=== PATIENT | male | born 1950 | race Caucasian/White ===

== ENCOUNTER 2020-01-04 07:08 | Day surgery (SDC) | payer OTHER ==
[2020-01-01 15:24] VITALS: BP 160/80
[2020-01-01 15:27] LABS: BASOPHILS % (AUTO) 0.1 % (0.0-5.0); HEMATOCRIT 35.3 % (42-54); LYMPHOCYTES % (AUTO) 15.9 % (21.0-51.0); MEAN CORPUSCULAR HEMOGLOBIN 36.6 pg (27.0-33.0); MEAN CORPUSCULAR HGB CONC 36.5 g/dL (32.0-36.0); MEAN CORPUSCULAR VOLUME 100.3 fL (79-99); MONOCYTES % (AUTO) 9.6 % (3.0-13.0); PLATELET COUNT (AUTO) 166 K/uL (130-400); RED BLOOD CELL COUNT(AUTO) 3.52 MIL/uL (4.50-6.20); WHITE BLOOD COUNT (AUTO) 7.6 K/uL (4.8-10.8)
[2020-01-01 15:28] LABS: APPEARANCE,URINE Clear (CLEAR); BILIRUBIN,URINE Negative (NEGATIVE); COLOR,URINE Dark Yellow (YELLOW); GLUCOSE, URINE (UA) TRACE mg/dL (NEGATIVE); KETONES,URINE Negative (NEGATIVE); LEUKOCYTE ESTERASE ,URINE Small (NEGATIVE); NITRATE,URINE Negative (NEGATIVE); OCCULT BLOOD,URINE Large (NEGATIVE); PROTEIN,URINE POS 1+ mg/dL (NEGATIVE)
[2020-01-01 15:48] LABS: BACTERIA,URINE Moderate /HPF (None Seen); MUCUS,URINE Moderate LPF (None Seen)
[2020-01-01 15:50] LABS: INR 1.03 (0.85-1.15); PROTHROMBIN TIME 10.8 SEC (9.6-11.6)
[2020-01-01 16:02] LABS: CREATININE 0.9 mg/dL (0.5-1.5); POTASSIUM 3.2 mmol/L (3.5-5.1)
--- NOTE | 2020-01-03 13:24 | NUR ---
LABS INFORMED DR. CALZADA OF POTASSIUM. NO ORDERS RECEIVED. PROCEED WITH PLANNED PROCEDURE.
[~2020-01-04] VITALS: Ht 168.9 cm; Wt 104.8 kg
[2020-01-04] VITALS (19 sets, daily range): BP systolic 132–165; BP diastolic 69–84
[~2020-01-04 07:08] MED LIST: ASPI-556 PO; FISH400C2 PO; METO-391 PO; ONDANSETRON HCL 4 MG/2 ML VIAL ONE; SIMV-43 PO; TRIA1CAP6 PO
[2020-01-04] MEDS ORDERED: FENTANYL CITRATE PF 50 MCG/1 ML 2ML VIAL ONE ×2 (07:57→09:35)
[2020-01-04] MEDS ORDERED: LIDOCAINE PF 2% 5ML ABBOJECT ONE (07:57)
[2020-01-04] MEDS ORDERED: PROPOFOL 10 MG/ML 20ML VIAL IV ONE (07:57)
[2020-01-04] MEDS ORDERED: GENTAMICIN 80 MG/NS 100 ML PB 100 ML IV PRN (08:00)
[2020-01-04] MEDS ORDERED: LACTATED RINGERS 1000ML 1,000 ML IV ONE (08:01)
[2020-01-04] MEDS: CEFTRIAXONE SODIUM 1 GM IVP ONE ×2 (08:08→08:45)
--- NOTE | 2020-01-04 11:45 | NUR ---
PATIENT ARRIVED TO DAY PATIENT VIA STRETCHER BY DEN UMANA.PATIENT TAKEN TO BATHROOM BY DONG, PATIENT NEEDS TO URINATE AND HAVE BOWEL MOVEMENT. PATIENT ASSISTED INTO BATHROOM BY DEN [employer]MANA.
--- NOTE | 2020-01-04 12:00 | NUR ---
PATIENT TAKEN TO ROOM 4 VIA STRETCHER. FAMILY IN ROOM WITH PATIENT. PATIENT AAOX3, RESPIRATIONS UNLABORED,VITAL SIGNS STABLE,DENIES ANY PAIN AT THIS TIME. STRING ATTACHED/SECURE TO PATIENT'S PENIS WITH CLEAR TAPE.
--- NOTE | 2020-01-04 12:20 | NUR ---
DISCHARGE INSTRUCTIONS PROVIDED TO PATIENT AND PATIENT'S FAMILY. PATIENT INSTRUCTED TO STRAIN URINE AND NO WORK FOR 3 DAYS OR STRENUOUS ACTIVITY FOR 5 DAYS, PATIENT VERBALIZED UNDERSTANDING.
--- NOTE | 2020-01-04 13:00 | NUR ---
PATIENT DISCHARGED FROM FACILITY VIA WHEELCHAIR AND ASSISTED INTO PRIVATE VEHICLE DRIVEN BY SON
[2020-04-10] MEDS ORDERED: TAMS-1 PO (14:48)
== END 2020-01-04 13:00 | disposition home or self-care (01) ==
LOC: DAH 07:08
PROVIDERS: ATTEND Urology
DX: N20.1 Calculus of ureter (principal); N13.5 Crossing vessel and stricture of ureter without hydronephrosis; I11.0 Hypertensive heart disease with heart failure; I50.9 Heart failure, unspecified; Z79.01 Long term (current) use of anticoagulants; Z85.828 Personal history of other malignant neoplasm of skin; Z86.73 Personal history of transient ischemic attack (TIA), and cerebral infarction without residual deficits; Z79.82 Long term (current) use of aspirin; Z79.899 Other long term (current) drug therapy; Z82.49 Family history of ischemic heart disease and other diseases of the circulatory system; Z83.3 Family history of diabetes mellitus; Z82.5 Family history of asthma and other chronic lower respiratory diseases
CPT/HCPCS: 36415; 50590; 52332; 71045; 74018; 80048; 81001; 85025; 85610; 85730; 87088; 93005; A4213; A4215; A4221; A4222; A4223 ×2; A4600; A4663; A6260; C1758; C1769; C2617; J0696; J1580; J2001; J2405; J2704; J3010 ×2; J7030; J7120

== ENCOUNTER → 2020-01-08 | Outpatient (CLI) | payer OTHER ==
[~2020-01-08] MED LIST changes: +ASPI-555 PO; -ASPI-556 PO; -ONDANSETRON HCL 4 MG/2 ML VIAL ONE
== END | disposition home or self-care (01) ==
LOC: RAH 11:09
PROVIDERS: ATTEND Urology
DX: N20.0 Calculus of kidney (principal); Z96.0 Presence of urogenital implants; Z98.890 Other specified postprocedural states
CPT/HCPCS: 74018

== ENCOUNTER → 2020-01-26 | Outpatient (CLI) | payer OTHER | END | disposition home or self-care (01) | LOC: RAH 11:32 | PROVIDERS: ATTEND Urology | DX: Z00.00 Encounter for general adult medical examination without abnormal findings (principal); N28.89 Other specified disorders of kidney and ureter; M47.815 Spondylosis without myelopathy or radiculopathy, thoracolumbar region | CPT/HCPCS: 74018 ==

== ENCOUNTER → 2020-03-22 | Outpatient (CLI) | payer OTHER | END | disposition home or self-care (01) | LOC: RAH 10:03 | PROVIDERS: ATTEND Urology | DX: N20.0 Calculus of kidney (principal); K59.00 Constipation, unspecified; M25.759 Osteophyte, unspecified hip | CPT/HCPCS: 74018 ==

== ENCOUNTER 2020-04-11 07:29 | Day surgery (SDC) | payer OTHER ==
[2020-04-05 16:29] LABS: BASOPHILS % (AUTO) 0.3 % (0.0-5.0); EOSINOPHILS % (AUTO) 2.6 % (0.0-8.0); HEMATOCRIT 31.3 % (42-54); LYMPHOCYTES % (AUTO) 20.3 % (21.0-51.0); MEAN CORPUSCULAR HEMOGLOBIN 36.4 pg (27.0-33.0); MEAN CORPUSCULAR HGB CONC 35.8 g/dL (32.0-36.0); MEAN CORPUSCULAR VOLUME 101.6 fL (79-99); MONOCYTES % (AUTO) 8.9 % (3.0-13.0); NEUTROPHILS % (AUTO) 67.3 % (40.0-77.0); PLATELET COUNT (AUTO) 159 K/uL (130-400); RED BLOOD CELL COUNT(AUTO) 3.08 MIL/uL (4.50-6.20); RED CELL DISTRIBUTION WIDTH 13.8 % (11.0-15.5)
[2020-04-05 16:34] LABS: APPEARANCE,URINE Clear (CLEAR); BILIRUBIN,URINE Negative (NEGATIVE); COLOR,URINE Dark Yellow (YELLOW); GLUCOSE, URINE (UA) >=1000 mg/dL (NEGATIVE); KETONES,URINE Negative (NEGATIVE); LEUKOCYTE ESTERASE ,URINE Negative (NEGATIVE); NITRATE,URINE Negative (NEGATIVE); OCCULT BLOOD,URINE Large (NEGATIVE); PROTEIN,URINE Trace mg/dL (NEGATIVE)
[2020-04-05 16:44] LABS: CREATININE 1.2 mg/dL (0.5-1.5); POTASSIUM 3.4 mmol/L (3.5-5.1)
[2020-04-05 16:52] LABS: BACTERIA,URINE Few /HPF (None Seen); MUCUS,URINE Few LPF (None Seen); SQUAMOUS EPITHELIAL CELL,UR Few /HPF (0-2)
[2020-04-05 16:59] LABS: URIC ACID CRYSTALS,URINE Few /LPF (None Seen)
[2020-04-10 14:35] VITALS: BP 172/78
--- NOTE | 2020-04-10 15:04 | NUR ---
POTASSIUM FAXED AND REPORTED ABNORMAL POTASSIUM TO DR. ACE FINGERS ASST. SHE WILL INFORM HIM.
[~2020-04-11] VITALS: Ht 170.2 cm; Wt 103.8 kg
[2020-04-11] VITALS (19 sets, daily range): BP systolic 134–178; BP diastolic 62–86
[~2020-04-11 07:29] MED LIST changes: -ASPI-555 PO; +ASPI-556 PO; -FISH400C2 PO; +GENTAMICIN 80 MG/NS 100 ML PB 100 ML IV SCH; +TAMS-1 PO
[2020-04-11] MEDS ORDERED: LACTATED RINGERS 1000ML 1,000 ML IV ONE (08:06)
[2020-04-11] MEDS: CEFTRIAXONE SODIUM 1 GM IVP SCH ×2 (08:30→10:00)
[2020-04-11] MEDS ORDERED: IOHEXOL-350 50ML VIAL IV ONE (09:40)
[2020-04-11] MEDS ORDERED: LIDOCAINE PF 2% 5ML ABBOJECT ONE (09:46)
[2020-04-11] MEDS ORDERED: MIDAZOLAM HCL 1 MG/ML 2ML VIAL ONE (09:46)
[2020-04-11] MEDS ORDERED: PROPOFOL 10 MG/ML 20ML VIAL IV ONE (09:46)
[2020-04-11] MEDS ORDERED: FENTANYL CITRATE PF 50 MCG/1 ML 2ML VIAL ONE ×2 (09:46→10:57)
[2020-04-11] MEDS ORDERED: DEXAMETHASONE SOD PHOSPHATE 10MG/ML 1ML VIAL ONE (09:46)
[2020-04-11] MEDS ORDERED: ONDANSETRON HCL 4 MG/2 ML VIAL ONE (09:46)
[2020-04-11] MEDS ORDERED: ROCURONIUM 10MG/1ML SYR 10 MG/ML ML ONE (09:47)
[2020-04-11] MEDS ORDERED: EPHEDRINE SULFATE 50 MG/ML AMPULE ONE (09:59)
[2020-04-11] MEDS ORDERED: GLYCOPYRROLATE 1 MG/5 ML SYRINGE ONE (10:00)
[2020-04-11] MEDS ORDERED: NEOSTIGMINE 5MG/5ML SYR IV ONE (10:00)
--- NOTE | 2020-04-11 13:57 | NUR ---
LATE ENTRY PT WAS LEAKING FROM [place] , ADVISED DOCTOR FINGER AND PER MD FLUSH URINARY CATH AND OKAY TO HOME, EXPLAINED TO PATIENT DISCUSSED CONCERNS, WILL CONT TO MONITOR.
== END 2020-04-11 13:45 | disposition home or self-care (01) ==
LOC: DAH 07:29
PROVIDERS: ATTEND Urology
DX: N20.2 Calculus of kidney with calculus of ureter (principal); Z11.59 Encounter for screening for other viral diseases; N35.912 Unspecified bulbous urethral stricture, male; I10 Essential (primary) hypertension; M19.90 Unspecified osteoarthritis, unspecified site; Z98.890 Other specified postprocedural states; Z79.899 Other long term (current) drug therapy; Z85.828 Personal history of other malignant neoplasm of skin; Z86.73 Personal history of transient ischemic attack (TIA), and cerebral infarction without residual deficits; Z79.82 Long term (current) use of aspirin; Z82.49 Family history of ischemic heart disease and other diseases of the circulatory system; Z83.3 Family history of diabetes mellitus; Z82.5 Family history of asthma and other chronic lower respiratory diseases
CPT/HCPCS: 36415 ×2; 52356; 74018; 74420; 80048; 81001; 82360; 85025; 87088; 96365; A4213; A4215; A4221; A4222; A4223 ×2; A4344; A4354; A4649; A4663; A4930; A5113; A6207; C1758; C1769; C2617; J0696; J1100; J1580; J2001; J2250; J2405; J2704; J2710; J3010 ×2; J3490 ×2; J7030; J7120 ×2; Q9967; U0003

== ENCOUNTER → 2020-04-30 | Outpatient (CLI) | payer OTHER ==
[~2020-04-30] MED LIST changes: -GENTAMICIN 80 MG/NS 100 ML PB 100 ML IV SCH
== END | disposition home or self-care (01) ==
LOC: RAH 09:33
PROVIDERS: ATTEND Urology
DX: N20.0 Calculus of kidney (principal)
CPT/HCPCS: 74018